=== PATIENT | female | born 1995 | race Caucasian/White ===

== ENCOUNTER → 2018-03-04 | Outpatient (CLI) | payer BC ==
[2018-03-04 10:29] LABS: CLUE CELLS PRESENT (Not Observd)
== END ==
LOC: LAB 10:13
PROVIDERS: Family Medicine
DX: R30.9 Painful micturition, unspecified (principal); N76.0 Acute vaginitis
CPT/HCPCS: Q0111

== ENCOUNTER → 2018-03-15 | Outpatient (CLI) | payer BC ==
[2018-03-15 12:01] LABS: URINE APPEARANCE CLOUDY; URINE BILIRUBIN NEGATIVE (NEGATIVE); URINE BLOOD TRACE (NEGATIVE); URINE COLOR YELLOW; URINE GLUCOSE NEGATIVE (NEGATIVE); URINE KETONE NEGATIVE (NEGATIVE); URINE LEUKOCYTE ESTERASE TRACE (NEGATIVE); URINE NITRATE NEGATIVE (NEGATIVE); URINE PROTEIN(semi-quant) NEGATIVE (NEGATIVE); URINE UROBILINOGEN NORMAL (NORMAL)
[2018-03-15 12:03] LABS: URINE MUCUS PRESENT (NOT PRESENT)
== END ==
LOC: LAB 11:03
PROVIDERS: Family Medicine
DX: N39.0 Urinary tract infection, site not specified (principal); R30.0 Dysuria

== ENCOUNTER → 2018-04-17 | Outpatient (CLI) | payer BC | LOC: LAB 17:03 | DX: N39.0 Urinary tract infection, site not specified (principal); R39.14 Feeling of incomplete bladder emptying ==

== ENCOUNTER → 2018-04-18 | Outpatient (CLI) | payer BC | LOC: LAB 16:17 | DX: N39.0 Urinary tract infection, site not specified (principal); R39.14 Feeling of incomplete bladder emptying ==

== ENCOUNTER → 2018-09-27 | Outpatient (CLI) | payer BC | LOC: LAB 10:14 | DX: R30.0 Dysuria (principal) ==

== ENCOUNTER → 2018-11-29 | Outpatient (CLI) | payer BC | LOC: LAB 09:19 | DX: N39.0 Urinary tract infection, site not specified (principal); R30.0 Dysuria ==

== ENCOUNTER → 2019-01-23 | Outpatient (CLI) | payer BC ==
[2019-01-23 16:46] LABS: EOS # 0.2 (0.04-0.40); EOS % 2.7 % (1.0-5.0); HEMATOCRIT 38.1 % (37.0-47.0); HEMOGLOBIN 13.6 g/dL (12.5-16.0); LYMPH# 2.6 (1.50-4.00); MEAN CELL VOLUME 87 fl (78-100); MEAN CORPUSCULAR HEMOGLOBIN 31 pg (27-31); MEAN CORPUSCULAR HGB CONC 36 g/dL (33-37); MEAN PLATELET VOLUME 8.9 fl (7.4-10.4); MONO # 0.7 (0.20-0.80); NEU # 4.4 (1.40-6.50); PLATELET COUNT 293 K/mm3 (130-400); RED BLOOD COUNT 4.39 M/mm3 (4.10-5.30); RED CELL DISTRIBUTION WIDTH 11.7 % (11.5-14.5); WHITE BLOOD COUNT 7.9 K/mm3 (4.8-10.8)
[2019-01-23 16:51] LABS: ALBUMIN 4.2 g/dL (3.5-5.0)
[2019-01-23 16:52] LABS: POTASSIUM 4.1 mmol/L (3.5-5.1)
[2019-01-23 16:53] LABS: CALCIUM 9.1 mg/dL (8.3-10.5)
[2019-01-23 16:56] LABS: TOTAL BILIRUBIN 0.3 mg/dL (0.2-1.2)
== END ==
LOC: LAB 16:20
PROVIDERS: Physician Assistant
DX: Z00.00 Encounter for general adult medical examination without abnormal findings (principal); E55.9 Vitamin D deficiency, unspecified; R53.83 Other fatigue; R63.5 Abnormal weight gain

== ENCOUNTER → 2020-09-02 | Outpatient (CLI) | payer BC ==
[2020-09-14 06:14] LABS: AFFIRM VAGINITIS PANEL RESULTS AMS
== END ==
LOC: LAB 08:50
PROVIDERS: Nurse Practitioner
DX: N30.01 Acute cystitis with hematuria (principal); N89.9 Noninflammatory disorder of vagina, unspecified

== ENCOUNTER → 2021-05-04 | Outpatient (CLI) | payer BC ==
[2021-05-04 17:07] LABS: URINE APPEARANCE CLEAR; URINE BILIRUBIN NEGATIVE (NEGATIVE); URINE BLOOD NEGATIVE (NEGATIVE); URINE COLOR YELLOW; URINE GLUCOSE NEGATIVE (NEGATIVE); URINE KETONE NEGATIVE (NEGATIVE); URINE LEUKOCYTE ESTERASE NEGATIVE (NEGATIVE); URINE MUCUS PRESENT (NOT PRESENT); URINE NITRATE NEGATIVE (NEGATIVE); URINE PROTEIN(semi-quant) TRACE mg/dL (NEGATIVE); URINE UROBILINOGEN NORMAL (NORMAL)
== END ==
LOC: LAB 16:37
PROVIDERS: Family Medicine
DX: O03.4 Incomplete spontaneous abortion without complication (principal); Z87.440 Personal history of urinary (tract) infections

== ENCOUNTER → 2021-05-10 | Outpatient (CLI) | payer BC | LOC: LAB 14:25 | DX: O03.4 Incomplete spontaneous abortion without complication (principal) ==

== ENCOUNTER → 2021-05-11 | Outpatient (CLI) | payer BC | LOC: VAS 09:00 → RAD 11:00 | DX: M25.569 Pain in unspecified knee (principal); M79.604 Pain in right leg ==

== ENCOUNTER → 2022-07-26 | Outpatient (CLI) | payer BC ==
[2022-07-26 18:00] LABS: D-DIMER 0.04 mg/L FEU (0.15-0.50)
== END ==
LOC: LAB 17:24
PROVIDERS: Nurse Practitioner
DX: M79.604 Pain in right leg (principal)